=== PATIENT | female | born 1950 | race Caucasian/White ===

== ENCOUNTER 2017-06-02 15:18 | Emergency (ER) | payer OTHER ==
[2017-06-02 15:30] VITALS: RESP 18
--- NOTE | 2017-06-02 15:48 | EDPHY ---
H & P Stated Complaint: back pain/pulled back 2 wks ago Time Seen by Provider: 06/02/17 15:48 HPI/ROS: CHIEF COMPLAINT: [ ] HISTORY OF PRESENT ILLNESS: [Need 4: Location, Duration, Severity, Quality, Context, Timing Modifying Factors, Associated S&S] REVIEW OF SYSTEMS: A comprehensive 10 point review of systems is otherwise negative aside from elements mentioned in the history of present illness. Source: Patient - Personal History Current Tetanus/Diphtheria Vaccine: Yes Tetanus Vaccine Date: unsure - Medical/Surgical History Hx Asthma: No Hx Chronic Respiratory Disease: Yes Hx Diabetes: No Hx Cardiac Disease: Yes Hx Renal Disease: No Hx Cirrhosis: No Hx Alcoholism: No Hx HIV/AIDS: No Hx Splenectomy or Spleen Trauma: No Other PMH: CHF,hypothyroidism, CARDIAC STENT, - Social History Smoking Status: Never smoked - Physical Exam Exam: General Appearance: [Alert, no distress] Eyes: [Pupils equal and round no pallor or injection] ENT, Mouth: [Mucous membranes moist] Respiratory: [There are no retractions, lungs are clear to auscultation] Cardiovascular: [Regular rate and rhythm] Gastrointestinal: [Abdomen is soft and nontender, no masses, bowel sounds normal] Neurological: [A&O, normal motor function, normal sensory exam, normal cranial nerves] Skin: [Warm and dry, no rashes] Musculoskeletal: [Neck is supple nontender] Extremities: [symmetrical, full range of motion] Psychiatric: [Patient is oriented X 3, there is no agitation] Constitutional: Initial Vital Signs Temperature (C) 36.7 C 06/02/17 15:26 Heart Rate 88 06/02/17 15:26 Respiratory Rate 18 06/02/17 15:26 Blood Pressure 109/59 L 06/02/17 15:26 O2 Sat (%) 97 06/02/17 15:26 O2 Delivery Mode Room Air Allergies/Adverse Reactions: No Known Allergies Allergy (Verified 06/02/17 15:25) Home Medications: Medication Instructions Recorded Venlafaxine Xr [Effexor Xr] 150 mg PO DAILY 03/10/13 clonazePAM [klonoPIN (*)] 2 mg PO HS 03/10/13 Carvedilol [Coreg (*)] 12.5 mg PO BIDMEAL 09/24/13 Spironolactone [Aldactone 25 MG 12.5 mg PO DAILY@18 09/24/13 (*)] Atorvastatin Calcium [Lipitor 40 80 mg PO DAILY 07/28/15 mg (*)] Calcium Carb W/Vit D [Calcium Carb 1,000 mg PO DAILY@12 07/28/15 W/Vit D 500/200 (*)] Dicyclomine [Bentyl 20 MG (*)] 10 - 20 mg PO Q6 PRN 07/28/15 Glucosamine/Chondroitin 2 each PO DAILY@12 07/28/15 [Glucosamine/Chondroitin (*)] Levothyroxine [Synthroid 100 mcg 100 mcg PO DAILY06 07/28/15 (*)] Pantoprazole Sodium [Protonix 40mg 40 mg PO BID@07,11 07/28/15 (*)] QUEtiapine FUMARATE [Seroquel 100 100 mg PO HS 07/28/15 mg (*)] Aspirin EC [Aspirin EC 81 mg (*)] 81 mg PO DAILY #30 tab 07/29/15 Prasugrel HCl [Effient 10mg (*)] 10 mg PO DAILY #30 tab 07/29/15 Carvedilol 06/02/17 Plavix 06/02/17
[2017-06-02] MEDS: GABAPENTIN 300 MG CAP PO ONE (16:48)
[2017-06-02] MEDS: ACETAMINOPHEN 500 MG TAB PO ONE (16:48)
[2017-06-02] MEDS: LIDOCAINE 5% 1 EA PATCH TD ONE (16:48)
--- NOTE | 2017-06-02 17:43 | EDPHY ---
H & P Time Seen by Provider: 06/02/17 15:48 HPI/ROS: CHIEF COMPLAINT: Back pain for 2 weeks HISTORY OF PRESENT ILLNESS: 67-year-old female reports diffuse low back pain which developed approximately 2 weeks ago. She reports moving furniture as well as working in her garden. Pain is across the lower lumbar spine area in a band. Radiation into both buttocks bilaterally. No numbness or tingling in the legs. Pain occasionally shoots into the posterior thighs bilaterally. No tingling. No urinary difficulties. Patient is concerned that she has not had imaging studies previously. She also reports some ongoing pain in her right hip especially when walking. Patient has used ice with [id number] relief. [No fever, chills, chest pain, shortness of breath, palpitations, vomiting, diarrhea, urinary complaints, headache, lightheadedness. ] REVIEW OF SYSTEMS: Aside from elements discussed in the HPI, a comprehensive 10-point review of systems was reviewed and is negative. PAST MEDICAL HISTORY: "Bad back ", congestive heart failure, cardiac stents. SOCIAL HISTORY: Nonsmoker. General appearance: Uncomfortable appearing. Moving slowly about the bed. HEENT: Benign. Lungs: Clear to auscultation. Abdomen: Soft and nontender. Heart: Regular rate and rhythm. Pelvis: Full range of motion at the hips. Focused examination of back: No trauma is noted. No tenderness to palpation along the spine. Paraspinous muscle spasm is present. Patient indicates the area pain is in a band across the lower lumbar spine. Neurological exam: Straight leg raise test is negative bilaterally. Hip flexion, knee extension, knee flexion, dorsiflexion and plantar flexion are 5/ 5 bilaterally. EHL 5 over 5. Sensation is intact to light touch throughout. 2 + knee and ankle jerk bilaterally. Vascular exam: Dorsalis pedis and posterior tibial pulses are intact. Brisk capillary refill. Smoking Status: Never smoked Constitutional: Initial Vital Signs Temperature (C) 36.7 C 06/02/17 15:26 Heart Rate 88 06/02/17 15:26 Respiratory Rate 18 06/02/17 15:26 Blood Pressure 109/59 L 06/02/17 15:26 O2 Sat (%) 97 06/02/17 15:26 O2 Delivery Mode Room Air Allergies/Adverse Reactions: No Known Allergies Allergy (Verified 10/08/17 15:25) Home Medications: Medication Instructions Recorded Venlafaxine Xr [Effexor Xr] 150 mg PO DAILY 03/10/13 clonazePAM [klonoPIN (*)] 2 mg PO HS 03/10/13 Carvedilol [Coreg (*)] 12.5 mg PO BIDMEAL 09/24/13 Spironolactone [Aldactone 25 MG 12.5 mg PO DAILY@18 09/24/13 (*)] Atorvastatin Calcium [Lipitor 40 80 mg PO DAILY 07/28/15 mg (*)] Calcium Carb W/Vit D [Calcium Carb 1,000 mg PO DAILY@12 07/28/15 W/Vit D 500/200 (*)] Dicyclomine [Bentyl 20 MG (*)] 10 - 20 mg PO Q6 PRN 07/28/15 Glucosamine/Chondroitin 2 each PO DAILY@12 07/28/15 [Glucosamine/Chondroitin (*)] Levothyroxine [Synthroid 100 mcg 100 mcg PO DAILY06 07/28/15 (*)] Pantoprazole Sodium [Protonix 40mg 40 mg PO BID@07,11 07/28/15 (*)] QUEtiapine FUMARATE [Seroquel 100 100 mg PO HS 07/28/15 mg (*)] Aspirin EC [Aspirin EC 81 mg (*)] 81 mg PO DAILY #30 tab 07/29/15 Prasugrel HCl [Effient 10mg (*)] 10 mg PO DAILY #30 tab 07/29/15 Carvedilol 06/02/17 Gabapentin [Neurontin 300 MG (*)] 300 mg PO HS #10 cap 06/02/17 Plavix 06/02/17 methylPREDNISolone [Medrol Dose 4 mg PO DAILY #1 ea 06/02/17 Wes] Medical Decision Making - Diagnostics Imaging Results: Xray: Lumbar spine x-ray was obtained. I viewed the images myself on the PACS system. My interpretation of the images is: Disc narrowing L3-L4,and L4-L5 no fracture. The radiology interpretation is: Agrees. I discussed the results with the patient. Xray: Right hip x-ray was obtained. I viewed the images myself on the PACS system. My interpretation of the images is: No acute findings. The radiology interpretation is: Agrees.. I discussed the results with the patient. ED Course/Re-evaluation: 67-year-old female who reports she has a "bad back "presents reporting increased pain for the last 2 weeks. Patient has not had imaging studies of her back and is interested in having plain films. Patient received Tylenol, gabapentin, lidocaine patch. She received Decadron. She reports she is not allowed to take nonsteroidals. She would not like narcotics. She does not tolerate muscle relaxants. Imaging studies of both her hip and her lumbar spine demonstrate no acute findings. Patient was encouraged to follow up with an orthopedic surgeon. She was given referral. She was also encouraged regarding Tylenol as needed for mild-to- moderate pain, gabapentin for pain at night, Medrol Dosepak, and lidocaine patches. Differential Diagnosis: After history was obtained and physical exam performed, the differential for back pain was considered including but not limited to muscular pain, herniated disc, spine fracture, intra-abdominal causes, and urinary tract infection. - Data Points Medications Given: Discontinued Medications Acetaminophen (Tylenol) 1,000 mg PO EDNOW ONE Stop: 06/02/17 16:28 Last Admin: 06/02/17 16:48 Dose: 1,000 mg Gabapentin (Neurontin) 600 mg PO EDNOW ONE Stop: 06/02/17 16:28 Last Admin: 06/02/17 16:48 Dose: 600 mg Lidocaine (Lidoderm 5%) 1 ea TD EDNOW ONE Stop: 06/02/17 16:28 Last Admin: 06/02/17 16:48 Dose: 1 ea Departure - Departure Disposition: Home, Routine, Self-Care Clinical Impression: Back pain Qualifiers: Back pain location: low back pain Chronicity: acute Back pain laterality: bilateral Sciatica presence: with sciatica Sciatica laterality: bilateral sciatica Qualified Code(s): M54.42 - Lumbago with sciatica, left side; M54.41 - Lumbago with sciatica, right side; M54.41 - Lumbago with sciatica, right side Condition: Good Instructions: Acute Low Back Pain (ED) Additional Instructions: For pain relief, I suggest high-dose Tylenol (650mg-1000mg of Tylenol) up to 3 times a day. Not exceed 3000 mg in a 24 hour period. I also suggest lidocaine patches. 4% lidocaine patches are available over-the- counter. Please begin taking gabapentin 300 mg at night for the next week. You have also been given a prescription for Medrol Dosepak. This may help with your back discomfort. Please follow up with your primary care physician if you're not improving as expected in the next several days. Consider physical therapy or chiropractic followup for persistent discomfort. Return to the emergency department if you experience significantly worsening pain, pain radiating into the legs, weakness, numbness or tingling, difficulties with bowel or bladder, fever, nausea, vomiting, or other concerns. Referrals: Leonard Leung MD [Medical Doctor] - As per Instructions (You may follow up with Dr. Leung for ongoing back pain) Prescriptions: Gabapentin [Neurontin 300 MG (*)] 300 mg PO HS #10 cap methylPREDNISolone [Medrol Dose Wes] 4 mg PO DAILY #1 ea
[2017-06-02 17:56] VITALS: BP 119/77; PULSE 74; TEMP 98.2; O2SAT 95
[2017-06-02] MEDS ORDERED: PATCH REMOVAL 1 EA PATCH TD SCH (21:00)
== END 2017-06-02 18:06 | disposition home or self-care (01) ==
DX: M54.41 Lumbago with sciatica, right side (principal); M54.42 Lumbago with sciatica, left side; Z79.82 Long term (current) use of aspirin

== ENCOUNTER → 2017-07-25 | Outpatient (CLI) | payer OTHER, BC | LOC: FIMAGING 18:22 | PROVIDERS: ATTEND Physical Medicine & Rehabilitation | DX: M54.16 Radiculopathy, lumbar region (principal); M51.27 Other intervertebral disc displacement, lumbosacral region ==

== ENCOUNTER 2017-10-16 14:01 | Emergency (ER) | payer OTHER, MEDICARE ==
--- NOTE | 2017-10-16 14:57 | CPEKG ---
Heart Rate: 85 RR Interval: 706 P-R Interval: 256 QRSD Interval: 76 QT Interval: 376 QTC Interval: 447 P [place]: 38 QRS [place]: 19 T Wave [place]: 51 EKG Severity - ABNORMAL ECG - EKG Impression: SINUS RHYTHM EKG Impression: FIRST DEGREE AV BLOCK Electronically Signed By: Sam Webber 16-Oct-2017 14:58:58
[2017-10-16 15:06] VITALS: TEMP 98.2
--- NOTE | 2017-10-16 15:29 | EDPHY ---
HPI/HX/ROS/PE/MDM Narrative: CHIEF COMPLAINT: Shortness of breath, dizzy HISTORY OF PRESENT ILLNESS: The patient is 67 y/o female with a history of a cardiac stent and PE complaining of intermittent shortness of breath and dizziness, onset 1 week ago. For the past month she has been more stationary than normal due to her back pain. She has also felt more stressed due to this back pain. However, performing simple tasks like moving from one end of the couch to the other, causes her to become short of breath. She is unsure if she is having a rapid heart rate as she can not differentiate her shortness of breath from a rapid heart rate. Took an anticoagulant for 6 months after her PE. Currently takes Plavix for CHF. Denies difficulty sleeping or shortness of breath while sleeping. Denies pain with her shortness of breath. Denies swelling or pain in legs. No fever, chills, chest pain, palpitations, vomiting, diarrhea, urinary complaints, headache, lightheadedness, recent illness. REVIEW OF SYSTEMS: Aside from elements discussed in the HPI, a comprehensive 10-point review of systems was reviewed and is negative. PAST MEDICAL HISTORY: CHF, cardiac stent, mitral valve, PE, PTSD, chronic back pain SOCIAL HISTORY: Lives in [place], retired, VITAL SIGNS: Reviewed by me GENERAL: Well-developed, well-nourished, resting comfortably in no respiratory distress. HEENT: Atraumatic. Eyes: No icterus, no injection. Mouth: moist mucous membranes. No erythema or lesions. Neck: supple with no adenopathy. LUNGS: Clear to auscultation bilaterally, no wheezes, rhonchi or rales. CARDIAC: Regular rate and rhythm, soft systolic murmur, no rubs or gallops. ABDOMEN: Soft, nontender, nondistended, bowel sounds normal. BACK: No CVA tenderness. EXTREMITIES: No trauma. No edema. Range of motion is normal throughout. NEURO: Alert and oriented, grossly nonfocal. SKIN: Warm and dry, no rash. PSYCHIATRIC: Normal mentation, no agitation. Portions of this note were transcribed by a medical illustrator. I personally performed a history, physical exam, medical decision making, and confirmed accuracy of information the transcribed note. ED Course: The patient is 67 y/o female with a history of a cardiac stent and PE presenting with intermittent shortness of breath and dizziness, onset 1 week ago. On her exam, her lungs are clear, heart is normal besides soft systolic murmur, no pedal edema. EKG, chest x-ray, and labs ordered. 1455: 12-LEAD EKG: Please see the full report in [facility]. My interpretation: Normal sinus rhythm with a rate of 85, ST depression laterally 1615: I reviewed the patient's chest x-ray. It reveals mild cardiomegaly, still pending radiologist's reading. Her labs are normal; troponin still pending. 1627: Radiologist reading is consistent with mine; there is no pneumonia. Chest CT ordered. 1718: Spoke with radiologist, patient is negative for a PE. Labs are also negative. 1748: Reassessed patient and discussed imaging and laboratory findings. I have advised her to follow up with her PCP and manuscripts archivist regarding her symptoms today. Return precautions provided; patient is comfortable with this plan. MDM: Differential diagnosis for the patient's shortness of breath was considered including but not limited to pulmonary infectious processes, COPD exacerbation, pulmonary emboli, pulmonary edema, congestive heart failure, and cardiac causes. - Data Points Imaging Results: Impression: 1. No evidence of pulmonary embolus using CT protocol. 2. Arteriosclerotic calcification associated with the proximal to mid LAD. 3. Mild enlargement of the left atria and ventricle. 4. Tiny gallstones layering in the gallbladder. Findings discussed with Erica Ochoa MD at 17:18 hour, 10/16/2017. Dictated By: Saravanan Tesfaye MD Imaging: Discussed imaging studies w/ orthopedically impaired teacher Radiologist, I viewed and interpreted images myself Laboratory Results: Laboratory Results 10/16/17 15:40 10/16/17 15:40 General Time Seen by Provider: 10/16/17 15:26 Initial Vital Signs: Initial Vital Signs Temperature (C) 36.5 C 10/16/17 14:03 Heart Rate 82 10/16/17 14:03 Respiratory Rate 18 10/16/17 14:03 Blood Pressure 118/86 H 10/16/17 14:03 O2 Sat (%) 98 10/16/17 14:03 O2 Delivery Mode Room Air Allergies/Adverse Reactions: opiods Allergy (Mild, Uncoded 10/16/17 14:09) GI Home Medications: Medication Instructions Recorded Atorvastatin Calcium [Lipitor 40 80 mg PO 10/16/17 mg (*)] Carvedilol [Coreg (*)] 25 mg PO 10/16/17 Clopidogrel Bisulfate [Plavix (*)] 75 mg PO DAILY 10/16/17 Levothyroxine [Synthroid 100 mcg 100 mcg PO DAILY06 10/16/17 (*)] QUEtiapine FUMARATE [Seroquel 25 25 mg PO 10/16/17 mg (*)] Venlafaxine Xr [Effexor Xr 75MG 150 mg PO 10/16/17 (*)] clonazePAM [Klonopin (*)] 0.5 mg PO 10/16/17 Departure - Departure Disposition: Home, Routine, Self-Care Clinical Impression: Dyspnea Qualifiers: Dyspnea type: unspecified Qualified Code(s): R06.00 - Dyspnea, unspecified Condition: Good Instructions: Dyspnea (ED), Shortness of Breath (ED) Additional Instructions: Follow-up with your primary doctor within 72 hours. Return to the Emergency Department for fever, chest pain, shortness of breath, increasing pain or other worsening of condition. Follow up with a manuscripts archivist for further testing, as soon as possible, within one week. As we discussed, it is impossible to fully rule out heart disease as the cause of your chest pain in the emergency department. We would be happy to reevaluate you and observe you in the hospital at any time. Referrals: Bere Ortega MD [Primary Care Provider] - As per Instructions Criselda Melendez MD [Medical Doctor] - As per Instructions Report Scribed for: Erica Ochoa Report Scribed by: Mignon Colón Date of Report: 10/16/17 Time of Report: 15:29
[2017-10-16 15:57] LABS: PLATELET COUNT 275 10^3/uL (150-400)
[2017-10-16] MEDS ORDERED: IOPAMIDOL (ISOVUE 370) 100 ML BTL IV ONE (16:40)
[2017-10-16 18:47] VITALS: BP 135/103; PULSE 80; RESP 20; O2SAT 97
== END 2017-10-16 19:15 | disposition home or self-care (01) ==
DX: R06.00 Dyspnea, unspecified (principal); I50.9 Heart failure, unspecified; Z95.5 Presence of coronary angioplasty implant and graft
CPT/HCPCS: 71046; 71275; 93005; 99285; Q9967

== ENCOUNTER 2017-11-25 09:18 | Day surgery (SDC) | payer OTHER, MEDICARE ==
[~2017-11-25 09:18] MED LIST: ACETAMINOPHEN 325 MG TAB PO PRN; ASPIRIN EC 325 MG TAB PO ONE; DIAZEPAM 5 MG TAB PO ONE; FAMOTIDINE 20 MG TAB PO ONE; NITROGLYCERIN 0.4 MG BTL SL PRN; NS 1,000 ML IV SCH; TEMAZEPAM 15 MG CAP PO PRN; diphenhydrAMINE 25 MG CAP PO ONE
[2017-11-25] MEDS ORDERED: FAMOTIDINE 20 MG TAB ONE (09:39)
[2017-11-25] MEDS ORDERED: diphenhydrAMINE 25 MG CAP PO ONE (09:39)
[2017-11-25] MEDS ORDERED: ASPIRIN EC 325 MG TAB PO ONE (09:39)
[2017-11-25] MEDS ORDERED: DIAZEPAM 5 MG TAB ONE (09:40)
--- NOTE | 2017-11-25 09:59 | CPEKG ---
Heart Rate: 87 RR Interval: 690 P-R Interval: 260 QRSD Interval: 74 QT Interval: 376 QTC Interval: 453 P [place]: 51 QRS [place]: 30 T Wave [place]: 72 EKG Severity - ABNORMAL ECG - EKG Impression: SINUS RHYTHM EKG Impression: VENTRICULAR TRIGEMINY EKG Impression: FIRST DEGREE AV BLOCK Electronically Signed By: Elmer Gilmore 25-Nov-2017 11:08:46
[2017-11-25 10:16] LABS: PLATELET COUNT 270 10^3/uL (150-400)
[2017-11-25 10:23] LABS: INR 1.02 (0.83-1.16); PROTIME(PATIENT) 13.6 SEC (12.0-15.0)
[2017-11-25] MEDS ORDERED: MIDAZOLAM 2 MG/2 ML VIAL IVP ONE (10:45)
--- NOTE | 2017-11-25 10:47 | PDANEPAE ---
ANE History of Present Illness CAD ANE Past Medical History - Cardiovascular History Hx Coronary Artery / Peripheral Vascular Disease: Yes - Pulmonary History Hx Oxygen in Use at Home: No Hx Sleep Apnea: No - Endocrine History Hx Diabetes: No - Chronic Pain History Chronic Pain: Yes ANE Review of Systems Review of Systems: ANE Patient History - Allergies Allergies/Adverse Reactions: opiods Allergy (Mild, Uncoded 10/16/17 14:09) GI - Home Medications Home Medications: Atorvastatin Calcium [Lipitor 40 mg (*)] 80 mg PO DAILY 10/16/17 [Last Taken 09/12 21:00] Carvedilol [Coreg (*)] 25 mg PO BIDMEAL 10/16/17 [Last Taken 11/25/17 09:30] Clopidogrel Bisulfate [Plavix (*)] 75 mg PO DAILY 10/16/17 [Last Taken 11/25/17 09:30] Levothyroxine [Synthroid 100 mcg (*)] 100 mcg PO DAILY06 10/16/17 [Last Taken 09:30] QUEtiapine FUMARATE [Seroquel 25 mg (*)] 25 mg PO HS 10/16/17 [Last Taken 21:00] Venlafaxine Xr [Effexor Xr 75MG (*)] 150 mg PO HS 10/16/17 [Last Taken 11/25/17 09:30] clonazePAM [Klonopin (*)] 0.75 mg PO HS 10/16/17 [Last Taken 11/24/17 21:00] Dexlansoprazole [Dexilant] 60 mg PO DAILY 11/20/17 [Last Taken 11/25/17 09:30] Glucosamine/Chondroitin [Glucosamine/Chondroitin (*)] 1 each PO DAILY 11/20/17 [ Last Taken 11/24/17 12:00] Lisinopril [Zestril 5 mg (*)] 5 mg PO DAILY 11/20/17 [Last Taken 11/25/17 09:30] - Smoking Hx Smoking Status: Never smoked ANE Labs/Vital Signs - Labs Result Diagrams: 11/25/17 10:05 11/25/17 10:05 - Vital Signs Height: 165 cm Weight: 95.9 kg ANE Physical Exam - Airway Neck exam: FROM Mallampati Score: Class 3 Mouth exam: normal dental/mouth exam - Pulmonary Pulmonary: no respiratory distress - Cardiovascular Cardiovascular: regular rate and rhythym - ASA Status ASA Status: III ANE Anesthesia Plan Anesthesia Plan: MAC
[2017-11-25] MEDS ORDERED: LIDOCAINE 1% 300 MG/30 ML SDV ONE (10:58)
[2017-11-25] MEDS ORDERED: IOPAMIDOL (ISOVUE-370) 150 ML BTL IV ONE (10:59)
--- NOTE | 2017-11-25 11:06 | PDHPUP ---
History & Physical Update H&P update statement: This history and physical update is based on an assessment of the patient which was completed after admission or registration (within 24 hours), but prior to the surgery/procedure. H&P update: H&P reviewed & patient examined, no change in patient's condition since H&P completed
[2017-11-25] MEDS ORDERED: MIDAZOLAM 2 MG/2 ML VIAL ONE (11:21)
[2017-11-25] MEDS ORDERED: NALOXONE HCL 0.4 MG/ML INJ IVP PRN (12:06)
[2017-11-25] MEDS ORDERED: HYDROCODONE/APAP 5/325 TAB PO PRN (12:37)
[2017-11-25] MEDS ORDERED: ONDANSETRON 4 MG/2 ML VIAL IVP PRN (12:37)
[2017-11-25] MEDS ORDERED: ATROPINE SULFATE 1 MG/10 ML SYR IVP PRN (12:37)
[2017-11-25] MEDS ORDERED: OXYCODONE/APAP 5/325 TAB PO PRN (12:37)
--- NOTE | 2017-11-25 13:33 | PDDXCAT ---
Diagnostic Cath Note - . Date: 11/25/17 Professional Architect: Keenan Indication: other (CAD with h/o PCI of the LAD in 2015, dyspnea on exertion, and abnormal nuclear stress test.) - Procedure Access: right groin Procedure: left heart catheterization, coronary angiography, left ventriculogram , right heart catheterization - Materials Left Heart Cath size: 5F Left Heart Cath materials: JL4.0, pigtail, Stanley's R Right Heart Cath size: 7F Right Heart Cath materials: PWP catheter - Findings-Left Heart Catheterization LM: Normal. LAD: Flouroscopy reveals the presence of a previously stented segment in the mid -LAD. Angiography reveals that the stented segment is widely patent with no restenosis whatsoever. The proximal LAD contains a moderate length segment of irregularities up to 30-40%. LCX: Mild irregularities. RCA: Mid-RCA with irregularities up to 30-40%. LVEF: 60% Wall motion: Normal. - Findings-Right Heart Catheterization RA: 8 mmHg RV: 48/6 mmHg PA: 48/22/31 mmHg O2 sat 65.7% PAOP: 16 mmHg AO: 101/68/80 mmHg O2 sat 98.2% CO: 3.98 L/min CI: 1.96 L/min/sq mtr Complications: None Estimated blood loss: <50ml Closure method: Angioseal Assessment: 1) Normal LV systolic function. 2) CAD as described above. 3) Mild to moderate pulmonary hypertension. Patient Problems: Problems Problem Status Onset CHF - Diastolic heart failure Active CHF - Systolic heart failure Active Chronic Disease Management/Transitional Care Program Active Hypothyroidism Active Vertigo Active Back pain Acute Chest pain Acute Dyspnea Acute
--- NOTE | 2017-11-25 16:02 | POSTANESTH ---
Post Anesthetic Evaluation Cardiovascular Status: Normal, Stable Respiratory Status: Normal, Stable Level of Consciousness/Mental Status: Can Participate in Eval Pain Control: Adequate, Prn Tx Ordered Nausea/Vomiting Control: Adequate, Prn Tx Ordered Complications Possibly Related to Anesthesia: None Noted
[2017-11-25 17:09] VITALS: BP 110/78
== END 2017-11-25 17:09 | disposition home or self-care (01) ==
LOC: FCATH 09:18
PROVIDERS: ATTEND Internal Medicine Interventional Cardiology
PROC: 4A023N8 Measurement of Cardiac Sampling and Pressure, Bilateral, Percutaneous Approach (ICD-10-PCS; principal; 2017-11-25)
PROC: B215YZZ Fluoroscopy of Left Heart using Other Contrast (ICD-10-PCS; principal; 2017-11-25)
PROC: B211YZZ Fluoroscopy of Multiple Coronary Arteries using Other Contrast (ICD-10-PCS; principal; 2017-11-25)
DX: I25.119 Atherosclerotic heart disease of native coronary artery with unspecified angina pectoris (principal); Z86.711 Personal history of pulmonary embolism; Z95.5 Presence of coronary angioplasty implant and graft
CPT/HCPCS: C1760; J1644; J2250; Q9967

== ENCOUNTER 2019-01-05 12:03 | Emergency (ER) | payer OTHER, MEDICARE ==
--- NOTE | 2019-01-05 12:43 | EDPHY ---
H & P Stated Complaint: Pt c/o constipation x1wk, intermittent stool softeners Time Seen by Provider: 01/05/19 12:21 HPI/ROS: CHIEF COMPLAINT: "I'm constipated" HISTORY OF PRESENT ILLNESS: 68-year-old female via private vehicle complaining of constipation. She was hospitalized recently secondary to CVA. She last had a bowel movement 9 days ago, saw her primary care provider this morning who obtained an upright abdominal x-ray recommend she go to the ER for disimpaction and enema placement. Positive flatus REVIEW OF SYSTEMS: 10 systems reviewed and negative with the exception of the elements mentioned in the history of present illness PAST MEDICAL & SURGICAL HISTORY: Recent hospitalization for CVA. Diabetes. Obesity. Mitral valve prolapse. PTSD. Aneurysm of ophthalmic artery. Coronary artery disease. Pulmonary hypertension. SOCIAL HISTORY: Nonsmoker. No drug use. PHYSICAL EXAM (Prior to examination, patient consented to physical exam, hands were washed and my usual and customary physical exam procedures followed) 1) GENERAL: Well-developed, well-nourished, alert and oriented. Appears to be in no acute distress. Conversive. Smiling. 2) HEAD: Normocephalic, atraumatic 3) HEENT: Pupils equal, round, reactive to light bilaterally. Sclera anicteric. 4) NECK: Full range of motion, no meningeal signs. 5) LUNGS: Clear auscultation bilaterally, no wheezes, no rhonchi, no retractions. 6) HEART: Regular rate and rhythm, no murmur, no heave, no gallop. 7) ABDOMEN: No guarding, no rebound, no focal tenderness, negative McBurney's, negative Lynch's, negative Rovsing's, negative peritoneal sign, I am unable to elicit any abdominal pain 8) MUSCULOSKELETAL: Moving all extremities, no focal areas of tenderness, no obvious trauma. No peripheral edema or discoloration. 9) BACK: No CVA tenderness, no midline vertebral tenderness, no fluctuance, no step-off, no obvious trauma, no visual or palpable abnormality. 10) SKIN: No rash, no petechiae. [11) rectal: Normal rectal tone, no stool in the rectal vault. DIFFERENTIAL DIAGNOSIS: In no particular order including but not limited to obstipation, constipation, bowel obstruction - Personal History Current Tetanus/Diphtheria Vaccine: Unsure Tetanus Vaccine Date: unsure - Medical/Surgical History Hx Asthma: No Hx Chronic Respiratory Disease: Yes Hx Diabetes: No Hx Cardiac Disease: Yes Hx Renal Disease: No Hx Cirrhosis: No Hx Alcoholism: No Hx HIV/AIDS: No Hx Splenectomy or Spleen Trauma: No Other PMH: CHF,hypothyroidism, CARDIAC STENT,. chronic back pain, PE, PTSD. obese, bilat CVA - Social History Smoking Status: Never smoked Constitutional: Initial Vital Signs Temperature (C) 36.7 C 01/05/19 12:13 Heart Rate 89 01/05/19 12:13 Respiratory Rate 16 01/05/19 12:13 Blood Pressure 102/74 01/05/19 12:13 O2 Sat (%) 95 01/05/19 12:13 O2 Delivery Mode Room Air Allergies/Adverse Reactions: opiods Allergy (Mild, Uncoded 10/16/17 14:09) GI Home Medications: Medication Instructions Recorded Atorvastatin Calcium [Lipitor 40 80 mg PO DAILY 10/16/17 mg (*)] Carvedilol [Coreg (*)] 25 mg PO BIDMEAL 10/16/17 Clopidogrel Bisulfate [Plavix (*)] 75 mg PO DAILY 10/16/17 Levothyroxine [Synthroid 100 mcg 100 mcg PO DAILY06 10/16/17 (*)] QUEtiapine FUMARATE [Seroquel 25 25 mg PO HS 10/16/17 mg (*)] Venlafaxine Xr [Effexor Xr 75MG 150 mg PO HS 10/16/17 (*)] clonazePAM [Klonopin (*)] 0.75 mg PO HS 10/16/17 Dexlansoprazole [Dexilant] 60 mg PO DAILY 11/20/17 Glucosamine/Chondroitin 1 each PO DAILY 11/20/17 [Glucosamine/Chondroitin (*)] Lisinopril [Zestril 5 mg (*)] 5 mg PO DAILY 11/20/17 Medical Decision Making ED Course/Re-evaluation: 2:15 p.m.: Re-evaluation after enema. Patient actively having a bowel movement at this time. 3:10 p.m.: Re-evaluation, patient is smiling, she informs me she had a large bowel movement is feeling improvement. I re-examined her abdomen which is soft no guarding no rebound. No subjective complaints of abdominal pain. No nausea or vomiting. She would like to be discharged home. Patient I discussed possibility of bowel obstruction however given lack of abdominal pain, nausea vomiting and feeling improvement after bowel movement I think that this is less than likely. At this time I do not think that CT imaging or diagnostic studies indicated. I had a lengthy discussion with her and her daughter in stressed the importance of return to the ER should she develop abdominal pain or any other symptoms that concern her. Recommend increasing fluid and fiber intake. Care of patient under supervision of primary supervising physician Dr Rudd with whom I discussed case. - Data Points Medications Given: Discontinued Medications Ondansetron HCl (Zofran Odt) 4 mg PO EDNOW ONE Stop: 01/05/19 12:57 Last Admin: 01/05/19 12:57 Dose: 4 mg Departure - Departure Disposition: Home, Routine, Self-Care Clinical Impression: Constipation Qualifiers: Constipation type: other constipation type Qualified Code(s): K59.09 - Other constipation Condition: Good Instructions: Constipation (ED) Additional Instructions: Return to emergency department if you develop abdominal pain, fevers inability to pass gas or stool or any other symptoms that concern you. Referrals: Rhiannon Uriarte, [Primary Care Provider] - 1-2 days without fail
[2019-01-05] MEDS ORDERED: ONDANSETRON DISINTEGRATING 4 MG TAB PO ONE (12:56)
[2019-01-05 15:50] VITALS: BP 103/75
== END 2019-01-05 15:50 | disposition home or self-care (01) ==
DX: K59.09 Other constipation (principal); I25.10 Atherosclerotic heart disease of native coronary artery without angina pectoris; I27.20 Pulmonary hypertension, unspecified; E11.9 Type 2 diabetes mellitus without complications; E66.9 Obesity, unspecified

== ENCOUNTER → 2019-01-05 | Outpatient (CLI) | payer OTHER, MEDICARE | LOC: SUPIMAGING 10:19 | PROVIDERS: ATTEND Family Medicine | DX: R05 Cough (principal); R11.10 Vomiting, unspecified; K59.00 Constipation, unspecified | CPT/HCPCS: 74022-PN ==